=== PATIENT | male | born 1980 | race Caucasian/White ===

== ENCOUNTER 2018-02-19 23:31 | Emergency (ER) | payer SELFPAY ==
[2018-02-20] MEDS ORDERED: ONDANSETRON 4 MG/2 ML VIAL ONE (00:09)
[2018-02-20] MEDS ORDERED: MORPHINE 4 MG/ML SYR ONE (00:09)
[2018-02-20] MEDS ORDERED: TETANUS & DIPHTHERIA TOX,ADULT 0.5 ML VIAL ONE (00:10)
[2018-02-20] MEDS ORDERED: NA CHLORIDE 0.9% 1,000 ML ONE (00:10)
[2018-02-20] MEDS ORDERED: LIDOCAINE 1% W/EPI 1:100,000 MDV 50 ML VIAL ONE (00:30)
[2018-02-20] MEDS ORDERED: LORazepam 2 MG/ML VIAL ONE (00:53)
[2018-02-20] MEDS ORDERED: NICOTINE 21 MG/PAT TD ONE (02:16)
[2018-02-20] MEDS ORDERED: CEPHALEXIN 250 MG CAP ONE (03:31)
[2018-02-20] MEDS ORDERED: HYDROCODONE/APAP 7.5/325 MG TAB ONE (03:31)
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
--- NOTE | 2018-02-20 08:37 | RAD REPORT ---
EXAM DESCRIPTION: Michael Single View02/20/2018 12:30 am CLINICAL HISTORY: Chest pain COMPARISON: none FINDINGS: The lungs appear clear of acute infiltrate. The heart is normal size IMPRESSION: No acute abnormalities displayed
== END 2018-02-20 05:12 | disposition home or self-care (01) ==
LOC: ER 23:31
PROC: 0JQ10ZZ Repair Face Subcutaneous Tissue and Fascia, Open Approach (ICD-10-PCS; principal; 2018-02-20)
PROC: 0CQ1XZZ Repair Lower Lip, External Approach (ICD-10-PCS; 2018-02-20)
DX: S01.511A Laceration without foreign body of lip, initial encounter (principal); S01.512A Laceration without foreign body of oral cavity, initial encounter; S01.81XA Laceration without foreign body of other part of head, initial encounter; Y08.09XA Assault by strike by other specified type of sport equipment, initial encounter; Y93.9 Activity, unspecified; Y92.9 Unspecified place or not applicable; Z23 Encounter for immunization; F41.9 Anxiety disorder, unspecified; F17.210 Nicotine dependence, cigarettes, uncomplicated
CPT/HCPCS: 70450; 70486; 71045; 72125; 76377; 90714; 96361; 96374; 96375; 99284; J2405; J7030